=== PATIENT | female | born 1985 | race Two or more races ===

== ENCOUNTER 2025-04-11 12:59 | Emergency (ER) | payer MEDICAID, OTHER ==
[~2025-04-11] VITALS: Ht 162.6 cm; Wt 66.3 kg
--- NOTE | 2025-04-11 14:06 | ED.PDOC ---
General HPI Comments 39 y/o F, with no prior medical history presents to the ED for CC of flank pain. Patient states, she has been experiencing right flank pain with associated nausea onset, (04/08/25). Patient denies nausea, vomiting, fever, dysuria, urgency, frequency, or hematuria. No other symptoms or modifying factors presents at this time. Chief Complaint: Flank Pain Time Seen by MD: 13:55 Reviewed notes: Nurses Notes, Medications, Allergies Allergies: Coded Allergies: NO KNOWN ALLERGIES (Unverified , 04/11/25) Information Source: Patient Mode of Arrival: Ambulatory Severity: Moderate Timing: Days Duration: Since onset Prehospital treatment: None Onset: Spontaneous Symptoms: None History of: None Location: (R) Flank Modifying factors: None associated signs and symptoms: Flank Pain Past Medical History PAST MEDICAL HISTORY: Denies Surgical History: Cholecystectomy [employer] History: Uterine Fibroids Family History Family History: Unknown Social History Smoker: Non-Smoker Alcohol: Denies ETOH Use Drugs: Denies Drug Use Lives In: Home Constitutional: denies: chills, diaphoresis, fatigue, fever, malaise, sweats, weakness, others EENTM: denies: blurred vision, double vision, ear bleeding, ear discharge, ear drainage, ear pain, ear ringing, eye pain, eye redness, hearing loss, mouth pain, mouth swelling, nasal discharge, nose bleeding, nose congestion, nose pain, photophobia, tearing, throat pain, throat swelling, voice changes, others Respiratory: denies: cough, hemoptysis, orthopnea, SOB at rest, shortness of breath, SOB with excertion, stridor, wheezing, others Cardiovascular: denies: chest pain, dizzy spells, diaphoresis, Dyspnea on exertion, edema, irregular heart beat, left arm pain, lightheadedness, palpitations, PND, syncope, others Gastrointestinal: denies: abdomen distended, abdominal pain, blood streaked bowels, constipated, diarrhea, dysphagia, difficulty swallowing, hematemesis, melena, nausea, poor appetite, poor fluid intake, rectal bleeding, rectal pain, vomiting, others Genitourinary: reports: flank pain; denies: abnormal vagina bleeding, burning, dyspareunia, dysuria, frequency, hematuria, incontinence, pain, , vagina discharge, urgency, others Neurological: denies: dizziness, fainting, headache, left sided numbness, left sided weakness, numbness, paresthesia, pre-existing deficit, right sided numbness, right sided weakness, seizure, speech problems, tingling, tremors, weakness, others Musculoskeletal: denies: back pain, gout, joint pain, joint swelling, muscle pain, muscle stiffness, neck pain, others Integumetry: denies: bruises, change in color, change in hair/nails, dryness, laceration, lesions, lumps, rash, wounds, others Allergic/Immunocompromised: denies: Difficulty Healing, Frequent Infections, Hives, Itching, others Hematologic/Lymphatic: denies: anemia, blood clots, easy bleeding, easy bruising, swollen glands, others Endocrine: denies: excessive hunger, excessive sweating, excessive thirst, excessive urination, flushing, intolerance to cold, intolerance to heat, unexplained weight gain, unexplained weight loss, others Psychiatric: denies: anxiety, bipolar disorder, depression, hopeless, panic disorder, schizophrenia, sleepless, suicidal, others All Other Systems: Reviewed and Negative Physical Exam General Appearance: Moderate Distress HEENT: Normal ENT Inspection, Pharynx Normal, TMs Normal Neck: Full Range of Motion, Non-Tender, Normal, Normal Inspection Respiratory: Chest Non-Tender, Lungs Clear, No Accessory Muscle Use, No Respiratory Distress, Normal Breath Sounds Cardiovascular: No Edema, No JVD, No Murmur, No Gallop, Normal Peripheral Pulses, Regular Rate/Rhythm Breast Exam: Deferred Gastrointestinal: No Organomegaly, Non Tender, No Pulsatile Mass, Normal Bowel Sounds, Soft Genitalia: Deferred Pelvic: Deferred Rectal: Deferred Extremities: No calf tenderness, Normal capillary refill, Normal inspection, Normal range of motion, Non-tender, No pedal edema Musculoskeletal : Apperance: Normal Neurologic: Alert, plastic surgery coordinator II-XII nml as Tested, No Motor Deficits, Normal Affect, Normal Mood, No Sensory Deficits Cerebellar Function: Normal Reflexes: Normal Skin: Dry, Normal Color, Warm Peripheral Pulses: 3+ Radial (R), 3+ Radial (L) Lymphatic: No Adenopathy Was a procedure done? Was a procedure done?: No Differential Diagnosis Kidney stone (Female): Pyelonephritis, Urinary obstruction, Urolithiasis Kidney stone (Male): N/A Penile/Scrotal: N/A Urinary Problem (Male): N/A Urinary Problem (Female): UTI X-Ray, Labs, Meds, VS Vital Signs Date Time Temp Pulse Resp B/P (MAP) Pulse Ox O2 Delivery O2 Flow Rate FiO2 04/11/25 13:04 97.6 85 16 144/102 100 97.6 Lab Test 04/11/25 14:46 04/11/25 14:16 Range/Units White Blood Count 5.1 4.4-10.8 10^3/uL Red Blood Count 4.90 4.0-5.20 10^6/uL Hemoglobin 14.5 12.2-16.2 g/dL Hematocrit 43.0 36.0-46.0 % Mean Corpuscular Volume 87.7 80.0-100.0 fL Mean Corpuscular Hemoglobin 29.7 28.0-32.0 pg Mean Corpuscular Hemoglobin Concent 33.8 32.0-36.0 g/dL Red Cell Distribution Width 13.8 11.8-14.3 % Platelet Count 247 140-450 10^3/uL Mean Platelet Volume 7.6 6.9-10.8 fL Neutrophils (%) (Auto) 56.6 37.0-80.0 % Lymphocytes (%) (Auto) 31.7 10.0-50.0 % Monocytes (%) (Auto) 7.0 0.0-12.0 % Eosinophils (%) (Auto) 3.7 0.0-7.0 % Basophils (%) (Auto) 1.0 0.0-2.0 % Neutrophils # (Auto) 2.9 1.6-8.6 10 ^3/uL Lymphocytes # (Auto) 1.6 0.4-5.4 10 ^3/uL Monocytes # (Auto) 0.4 0-1.3 10 ^3/uL Eosinophils # (Auto) 0.2 0-0.8 10 ^3/uL Basophils # (Auto) 0 0-0.2 10 ^3/uL Nucleated Red Blood Cells 0.3 % Sodium Level 138 136-145 mmol/L Potassium Level 3.7 3.5-5.1 mmol/L Chloride Level 104 98-107 mmol/L Carbon Dioxide Level 25 20-31 mmol/L Anion Gap 9 5-15 Blood Urea Nitrogen 7 L 9-23 mg/dL Creatinine 0.71 0.550-1.02 mg/dL Glomerular Filtration Rate Calc 111 >90 mL/min BUN/Creatinine Ratio 9.9 L 10.0-20.0 Serum Glucose 91 74-106 mg/dL Calcium Level 9.9 8.7-10.4 mg/dL Urine Color Colorless Yellow Urine Clarity Clear Clear Urine pH 6.0 5.0-9.[address] [place] 1.009 1.001-1.035 Urine Protein Negative Negative Urine Ketones Negative Negative Urine Blood Negative Negative /uL Urine Nitrite Negative Negative Urine Bilirubin Negative Negative Urine Urobilinogen Normal Negative mg/dL Urine Leukocyte Esterase Negative Negative /uL Urine Glucose Normal Normal mg/dL Patient alert. Complaining of flank discomfort. Vitals stable. Answering all questions. No sign of distress. Urinalysis within normal limits. No blood. WBC within normal limits. Abdomen is soft nontender. No leg swelling. No shortness a breath. No tachycardia. Saturation pristine on room air. Was told to drink plenty of fluids. Explained to the patient. Was told to follow up with her primary care physician. Was told to come back if there is any problem. Time of 1ST Reevaluation: 14:25 Reevaluation 1ST: Unchanged Patient Education/Counseling: Diagnosis, Treatment Family Education/Counseling: No Family Present SEPSIS Sepsis Screen Date sepsis recognized/suspect: Apr 11, 2025 Time Sepsis recognized/suspect: 1307 Recent Procedure: No On Antibiotic Therapy: No Respiratory Rate >20: No Heart Rate >90: No Temp<36 C (96.8 F) or >38.3 C: No SBP <90 or MAP <65 mmHG: No New Acute Mental Status Change: No Is the patient on CPAP, BIPAP,: No Vital Signs Date Time Temp Pulse Resp B/P (MAP) Pulse Ox O2 Delivery O2 Flow Rate FiO2 04/11/25 13:04 97.6 85 16 144/102 100 97.6 Laboratory Tests Test 04/11/25 14:46 White Blood Count 5.1 10^3/uL (4.4-10.8) Departure 1 Departure Time of Disposition: 16:24 Impression: Primary Impression: Musculoskeletal pain Disposition: 01 HOME / SELF CARE / HOMELESS Condition: Good e-Prescriptions Hydrocodone-Acetaminophen (Hydrocodone Bitartrate/AC 5-325 mg) 1 Tab Tab 1 TAB PO DAILY for 3 Days, #3 TAB Prov: KERRY CASTANON MD 04/11/25 Discharged With: Self Critical Care Note Critical Care Time?: No Stability Stability form required: No Heart Score Heart Score: Heart Score Response (Comments) Value History N/A 0 EKG N/A 0 Age N/A 0 Risk Factors N/A 0 Troponin N/A 0 Total 0 I personally scribed for KERRY CASTANON MD ([email or web address]) on 04/11/25 at 14:06. Electronically submitted by Sydnee Medina ([email or web address]). KERRY CASTANON MD Apr 11, 2025 14:06
[2025-04-11 15:02] LABS: Hematocrit 43.0 % (36.0-46.0); Hemoglobin 14.5 g/dL (12.2-16.2); Mean Corpuscular Hemoglobin 29.7 pg (28.0-32.0); Mean Corpuscular Volume 87.7 fL (80.0-100.0); Nucleated Red Blood Cells % 0.3 %
[2025-04-11 15:11] LABS: Chloride 104 mmol/L (98-107); Potassium 3.7 mmol/L (3.5-5.1); Sodium 138 mmol/L (136-145)
[2025-04-11 15:12] LABS: Anion Gap 9 (5-15); Calcium 9.9 mg/dL (8.7-10.4); Carbon Dioxide 25 mmol/L (20-31)
[2025-04-11 15:17] LABS: BUN/Creatinine Ratio 9.9 (10.0-20.0); Glucose 91 mg/dL (74-106)
[2025-04-11 15:19] LABS: Blood Urea Nitrogen 7 mg/dL (9-23)
[2025-04-11 16:03] LABS: Urine Protein, UAD Negative (Negative)
[2025-04-11] MEDS ORDERED: HYDR-4902 PO (16:46)
[2025-04-11 16:49] VITALS: BP 142/102; PULSE 74; RESP 18; TEMP 98.7; O2SAT 98
== END 2025-04-11 16:56 | disposition home or self-care (01) ==
LOC: ER 12:59
DX: M79.18 Myalgia, other site (principal); Z90.49 Acquired absence of other specified parts of digestive tract
CPT/HCPCS: 36415; 80048; 81003; 85025